=== PATIENT | female | born 1970 | race Caucasian/White ===

== ENCOUNTER 2021-02-08 19:35 | Emergency (ER) | payer BC ==
[2021-02-08] MEDS ORDERED: Sodium Chloride 0.9% 1,000 ML IV ONE (20:27)
[2021-02-08 20:30] VITALS: BP 167/85; PULSE 92
[2021-02-08] MEDS ORDERED: Iopamidol 612 MG/ML 100 ML Bottle IVPUSH ONE (20:41)
--- NOTE | 2021-02-08 21:05 | EDM.PDOC ---
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 S?P Vag hysterectomy on 01/23 with bladder suspension. Uneventful recovery until tonight when going for short walk and felt leaking then pants saturated. Tried lying down briefly to see if would decrease. Has not slowed, passing large clots. . States has been resting through recovery no extra lifting, mild straing with BM prior to walking No fever or chills. Vaginal Pain Score (Numeric/FACES): 5 - Related Data Allergies Allergy/AdvReac Type Severity Reaction Status Date / Time ibuprofen Allergy Swelling Verified 02/08/21 20:29 Penicillins Allergy Cannot Verified 02/08/21 20:29 Remember Home Meds: Home Meds Aspirin 81 mg PO DAILY 11/02/20 [History] Clopidogrel [Plavix] 75 mg PO DAILY 11/02/20 [History] Metoprolol Tartrate 12.5 mg PO BID 11/02/20 [History] Nitroglycerin 0.4 mg SL ASDIRECTED PRN 11/02/20 [History] Ubidecarenone [Co Q-10] 100 mg PO BID 11/02/20 [History] atorvaSTATin Calcium [Atorvastatin Calcium] 40 mg PO BEDTIME 11/02/20 [History] Isosorbide Mononitrate [Isosorbide Mononitrate ER] 30 mg PO DAILY 11/03/20 [History] Past Medical History Cardiovascular History: Reports: High Cholesterol, Hypertension, Stents Endocrine/Metabolic History: Reports: Diabetes, Type II - Past Surgical History HEENT Surgical History: Reports: Adenoidectomy, Tonsillectomy GI Surgical History: Reports: Appendectomy, Cholecystectomy Female Surgical History: Reports: Section, Endometrial Ablation, Hysterectomy, Tubal Ligation Social & Family History - Family History Family Medical History: No Pertinent Family History Cardiac: Reports: CAD, Hypertension Endocrine/Metabolic: Reports: Diabetes, type II - Tobacco Use Tobacco Use Status *Q: Never Tobacco User Second Hand Smoke Exposure: No - Caffeine Use Caffeine Use: Reports: Soda - Recreational Drug Use Recreational Drug Use: No ED ROS GENERAL - Review of Systems Review Of Systems: Comprehensive ROS is negative, except as noted in HPI. ED EXAM, GI/ABD - Physical Exam Exam: See Below Exam Limited By: No Limitations General Appearance: Alert, Anxious, Mild Distress Eyes: Bilateral: EOMI Nose: Normal Inspection Throat/Mouth: Normal Inspection Head: Atraumatic, Normocephalic Neck: Normal Inspection Respiratory/Chest: No Respiratory Distress, Lungs Clear, Normal Breath Sounds Cardiovascular: Regular Rate, Rhythm GI/Abdominal Exam: Normal Bowel Sounds, Soft, Tender (mild lower abdomen) (Female) Exam: Normal External Exam, Other (active vaginal bleeding with moderate clots. Initial appearrance at lateral surgical cuff appeared spurting then active continual flow. Saturating large OB pad within 15 minutes . does not appear to be slowing with packing) Course - Vital Signs Last Recorded V/S: Last Vital Signs Temp 98.8 F 02/08/21 20:21 Pulse 92 02/08/21 20:21 Resp 18 02/08/21 20:21 BP 167/85 H 02/08/21 20:21 Pulse Ox 100 02/08/21 20:21 - Orders/Labs/Meds Labs: Laboratory Tests 02/08/21 02/08/21 02/08/21 Range/Units 20:50 20:50 20:50 WBC 9.4 (5.0-10.0) 10^3/uL RBC 4.18 L (4.2-5.4) 10^6/uL Hgb 12.7 (12.0-16.0) g/dL Hct 38.3 (37.0-47.0) % MCV 91.6 (80-100) fL MCH 30.4 (27.0-34.0) pg MCHC 33.2 (33.0-35.0) g/dL Plt Count 267 (150-450) 10^3/uL Neut % (Auto) 64.1 (42.2-75.2) % Lymph % (Auto) 27.1 (20.5-50.1) % Treasure % (Auto) 6.5 (2-8) % Eos % (Auto) 2.0 (1.0-3.0) % Baso % (Auto) 0.3 (0.0-1.0) % Sodium 139 (136-145) mmol/L Potassium 4.0 (3.5-5.1) mmol/L Chloride 104 (98-107) mmol/L Carbon Dioxide 24 (21-32) mmol/L Anion Gap 15.0 H (7-13) mEq/L BUN 13 (7-18) mg/dL Creatinine 0.83 (0.55-1.02) mg/dL Est Cr Clr Drug Dosing 58.89 mL/min Estimated GFR (MDRD) > 60 BUN/Creatinine Ratio 15.7 (No establ ref range) Glucose 211 H (70-99) mg/dL Calcium 8.5 (8.5-10.1) mg/dL Total Bilirubin 0.6 (0.2-1.0) mg/dL AST 10 L (15-37) U/L ALT 29 (14-59) U/L Alkaline Phosphatase 101 (46-116) U/L Total Protein 6.9 (6.4-8.2) g/dL Albumin 3.4 (3.4-5.0) g/dL Globulin 3.5 Albumin/Globulin Ratio 1.0 Amylase 65 (25-115) U/L Urine Color (YELLOW) Urine Appearance (CLEAR) Urine pH (5.0-9.0) Ur Specific [place] (1.005-1.030) Urine Protein (NEGATIVE) Urine Glucose (UA) (NEGATIVE) Urine Ketones (NEGATIVE) Urine Occult Blood (NEGATIVE) Urine Nitrite (NEGATIVE) Urine Bilirubin (NEGATIVE) Urine Urobilinogen (0.2-1.0) mg/dL Ur Leukocyte Esterase (NEGATIVE) Urine RBC /HPF Urine WBC (0-5/HPF) /HPF Ur Epithelial Cells (NOT SEEN) /HPF Urine Bacteria (0-FEW/HPF) /HPF Blood Type O POSITIVE Gel Antibody Screen Negative 02/08/21 Range/Units 22:06 WBC (5.0-10.0) 10^3/uL RBC (4.2-5.4) 10^6/uL Hgb (12.0-16.0) g/dL Hct (37.0-47.0) % MCV (80-100) fL MCH (27.0-34.0) pg MCHC (33.0-35.0) g/dL Plt Count (150-450) 10^3/uL Neut % (Auto) (42.2-75.2) % Lymph % (Auto) (20.5-50.1) % Treasure % (Auto) (2-8) % Eos % (Auto) (1.0-3.0) % Baso % (Auto) (0.0-1.0) % Sodium (136-145) mmol/L Potassium (3.5-5.1) mmol/L Chloride (98-107) mmol/L Carbon Dioxide (21-32) mmol/L Anion Gap (7-13) mEq/L BUN (7-18) mg/dL Creatinine (0.55-1.02) mg/dL Est Cr Clr Drug Dosing mL/min Estimated GFR (MDRD) BUN/Creatinine Ratio (No establ ref range) Glucose (70-99) mg/dL Calcium (8.5-10.1) mg/dL Total Bilirubin (0.2-1.0) mg/dL AST (15-37) U/L ALT (14-59) U/L Alkaline Phosphatase (46-116) U/L Total Protein (6.4-8.2) g/dL Albumin (3.4-5.0) g/dL Globulin Albumin/Globulin Ratio Amylase (25-115) U/L Urine Color Yellow (YELLOW) Urine Appearance Slightly cloudy (CLEAR) Urine pH 7.0 (5.0-9.0) Ur Specific [place] 1.015 (1.005-1.030) Urine Protein Negative (NEGATIVE) Urine Glucose (UA) 250 H (NEGATIVE) Urine Ketones Negative (NEGATIVE) Urine Occult Blood Trace-lysed H (NEGATIVE) Urine Nitrite Negative (NEGATIVE) Urine Bilirubin Negative (NEGATIVE) Urine Urobilinogen 0.2 (0.2-1.0) mg/dL Ur Leukocyte Esterase Negative (NEGATIVE) Urine RBC 0-5 /HPF Urine WBC 0-5 (0-5/HPF) /HPF Ur Epithelial Cells Few (NOT SEEN) /HPF Urine Bacteria Few (0-FEW/HPF) /HPF Blood Type Gel Antibody Screen Meds: Medications Discontinued Medications Generic Name Dose Route Start Last Admin Trade Name Freq PRN Reason Stop Dose Admin Bacitracin 6 dose 02/08/21 21:52 02/08/21 22:18 Bacitracin Oint 1 Gm U/D Packet TOP 02/08/21 21:53 6 dose ONETIME ONE Administration Fentanyl 50 mcg 02/08/21 22:12 02/08/21 22:21 Fentanyl 100 Mcg/2 Ml Sdv IVPUSH 02/08/21 22:13 50 mcg ONETIME ONE Administration Sodium Chloride 1,000 mls @ 500 mls/hr 02/08/21 20:27 02/08/21 21:17 Normal Saline IV 02/08/21 22:26 500 mls/hr .BOLUS ONE Administration Iopamidol 100 ml 02/08/21 20:41 02/08/21 21:18 Iopamidol 612 Mg/Ml 100 Ml Bottle IVPUSH 02/08/21 20:42 75 ml ONETIME ONE Administration Ondansetron HCl 4 mg 02/08/21 22:12 02/08/21 22:21 Ondansetron 4 Mg/2 Ml Sdv IVPUSH 02/08/21 22:13 4 mg ONETIME ONE Administration Tranexamic Acid Confirm 02/08/21 23:02 02/08/21 23:43 Tranexamic Acid 1,000 Mg/10 Ml Amp Administered 02/08/21 23:03 Not Given Dose 1,000 mg .ROUTE .STK-MED ONE Tranexamic Acid 1,000 mg 02/08/21 23:30 02/08/21 23:41 Tranexamic Acid 1,000 Mg/10 Ml Amp TOP 02/08/21 23:39 1,000 mg ONETIME ONE Administration - Re-Assessments/Exams Free Text/Narrative Re-Assessment/Exam: 02/08/21 22:[address] 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 Accepting patient. Will evaluate in ED. Due to distance and continued bleeding Patient is appropriate for flight transport. Discussed with patient, she is agreeable . Tx via [facility]. Continued moderate vaginal bleeding with clots, attempted vaginal packing, almost immediately saturated with formation of clot and increased pressure and discomfort with packing. Packing removed. large clot present. Replaced vag packing with saturated TXA packing tto surgical cuff. [facility] team here. Tx via [facility] [employer]. Departure - Departure Time of Disposition: 23:59 Disposition: DC/Tfer to Acute Hospital 02 Condition: Undetermined Clinical Impression: Status post vaginal hysterectomy, Postoperative vaginal bleeding - Discharge Information *PRESCRIPTION DRUG MONITORING PROGRAM REVIEWED*: No *COPY OF PRESCRIPTION DRUG MONITORING REPORT IN PATIENT PREMA: No Referrals: PCP,None [Primary Care Provider] - Forms: ED Department Discharge Sepsis Event Note (ED) - Evaluation Sepsis Screening Result: No Definite Risk - Focused Exam Vital Signs: Vital Signs Temp Pulse Resp BP Pulse Ox 02/08/21 20:21 98.8 F 92 18 167/85 H 100
[2021-02-08 21:12] LABS: CHLORIDE,CL 104 mmol/L (98-107); SODIUM,NA 139 mmol/L (136-145)
[2021-02-08] MEDS ORDERED: Bacitracin Oint 1 GM U/D Packet TOP ONE (21:52)
--- NOTE | 2021-02-08 21:55 | CT ---
PROCEDURE INFORMATION: Exam: CT Abdomen And Pelvis With Contrast Exam date and time: 02/08/2021 9:06 PM Age: 50 years old Clinical indication: Other: S/P hysterectomy vag bleeding; Prior surgery; Surgery date: <1 month; Surgery type: Hysterectomy and bladder lift 01/23/2021. Cholecystectomy and appendectomy TECHNIQUE: Imaging protocol: Computed tomography of the abdomen and pelvis with contrast. Radiation optimization: All CT scans at this facility use at least one of these dose optimization techniques: automated exposure control; mA and/or kV adjustment per patient size (includes targeted exams where dose is matched to clinical indication); or iterative reconstruction. Contrast material: ISOVUE 300; Contrast volume: 75 ml; Contrast route: INTRAVENOUS (IV); COMPARISON: No relevant prior studies available. FINDINGS: Liver: Normal. No mass. Gallbladder and bile ducts: The gallbladder is absent. Pancreas: Normal. No ductal dilation. Spleen: Normal. No splenomegaly. Adrenal glands: Normal. No mass. Kidneys and ureters: Normal. No hydronephrosis. Normal bilateral renal parenchymal enhancement. Stomach and bowel: Moderate amount of colonic stool. No bowel obstruction. No mucosal thickening or pneumatosis. Appendix: The appendix is surgically absent. Intraperitoneal space: Small amount of free fluid and fat stranding in the lower pelvis in the uterine resection bed which may be seen following recent surgery. No focal fluid collections. No free air. Vasculature: The vasculature demonstrates mild atherosclerotic calcification. No abdominal aortic aneurysm. Lymph nodes: Unremarkable. No enlarged lymph nodes. Urinary bladder: Unremarkable as visualized. Reproductive: The uterus is absent. The vaginal cuff and canal are distended with fluid. There is curvilinear high attenuation within the vaginal fluid. 2.1 cm right ovarian cystic lesion with mildly thickened enhancing rim consistent with corpus luteum cyst. Bones/joints: There are 6 lumbar type [id number] vertebral bodies with a sacralized L6. Degenerative disc disease at L5-6 with moderate to severe loss of disc height and broad-based posterior disc bulge causing [id number] central canal narrowing. Grade 1 retrolisthesis of L5 on L6. Soft tissues: Unremarkable. IMPRESSION: Status post recent hysterectomy. Vaginal cuff and canal are distended with fluid, and there is curvilinear high attenuation within the vaginal fluid consistent with contrast extravasation from active bleeding.
[2021-02-08] MEDS ORDERED: fentaNYL 100 MCG/2 ML SDV IVPUSH ONE (22:12)
[2021-02-08] MEDS ORDERED: Ondansetron 4 MG/2 ML SDV IVPUSH ONE (22:12)
== END 2021-02-09 00:15 ==
LOC: DL.ED 19:35
DX: N99.820 Postprocedural hemorrhage of a genitourinary system organ or structure following a genitourinary system procedure (principal); E78.00 Pure hypercholesterolemia, unspecified; I10 Essential (primary) hypertension; E11.9 Type 2 diabetes mellitus without complications; Z95.5 Presence of coronary angioplasty implant and graft; Z90.710 Acquired absence of both cervix and uterus; Z79.02 Long term (current) use of antithrombotics/antiplatelets
CPT/HCPCS: 36415; 74177; 80053; 81001; 82150; 85025; 86850; 86900; 86901; 96374; 96375; 99284; 99285; J2405; J3010; J7030; Q9967